=== PATIENT | female | born 1995 | race Caucasian/White ===

== ENCOUNTER 2019-05-02 20:23 | Emergency (ER) | payer OTHER ==
[2019-05-02] MEDS ORDERED: NA CHLORIDE 0.9% 1,000 ML ONE (21:00)
[2019-05-02 21:27] LABS: Absolute Lymphocytes (CBC) 1.4 K/uL (0.7-4.9); Basophils % 0.5 % (0-1.3); Hematocrit 42.3 % (36.0-45.0); Lymphocytes % 22.5 % (15.3-44.8); MPV 8.3 fL (7.6-11.3); RBC Red Blood Cell Count 4.83 M/uL (3.86-4.86)
[2019-05-02 21:39] LABS: Albumin 4.1 g/dL (3.4-5.0); Bilirubin Direct 0.1 mg/dL (0-0.2); Bilirubin Total 0.4 mg/dL (0.2-1.0); Potassium 3.6 mmol/L (3.5-5.1); Protein, Total 7.2 g/dL (6.4-8.2)
[2019-05-02 21:49] LABS: Urine RBC <5 /HPF (NONE SEEN)
[2019-05-02 21:50] LABS: Urine Amorphous Sediment 4+ /HPF (NONE SEEN); Urine Bacteria <20 /HPF (<20); Urine Culture Reflex Order NOT NEEDED
[2019-05-02 21:50] LABS: Urine Blood NEGATIVE (NEG); Urine Glucose NEGATIVE (NEG); Urine Protein NEGATIVE (NEG); Urine pH 8.5 (5.0-7.0)
[2019-05-02] MEDS ORDERED: ONDANSETRON 4 MG (ODT) TAB ONE (22:34)
[2019-05-02] MEDS ORDERED: KETOROLAC 30 MG/ML INJ ONE (22:34)
--- NOTE | 2019-05-02 22:45 | ER ---
Nurse's Notes [facility] Name: Abeba Allen Age: 24 yrs Sex: Female : 1995 Arrival Date: 05/02/2019 Time: 20:28 Bed 16 Private MD: Diagnosis: Volume depletion;Menstrual migraine, intractable, without status migrainosus Presentation: 05/02 20:42 Presenting complaint: Patient states: for the last 5 days she has been feeling bb light-headed and nauseous with a throbbing headache yesterday she started her menstrual cycle and is bleeding heavier than usual and she has a pins and needles feeling in that area. Transition of care: patient was not received from another setting of care. Onset of symptoms was April 27, 2019. Risk Assessment: Do you want to hurt yourself or someone else? Patient reports no desire to harm self or others. Initial Sepsis Screen: Does the patient meet any 2 criteria? No. Patient's initial sepsis screen is negative. Does the patient have a suspected source of infection? No. Patient's initial sepsis screen is negative. Care prior to arrival: None. 20:42 Method Of Arrival: Ambulatory bb 20:42 Acuity: BISHNU 3 bb 20:47 Note pt states she has been out of her medications x 1 month she recently moved here bb and has not been able to find a doctor. 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 - Ebola Screening: : No symptoms or risks identified at this time. - Social history:: Smoking status: Patient/guardian denies using tobacco. Screenin:00 Abuse screen: Denies threats or abuse. Denies injuries from another. Nutritional ca1 screening: No deficits noted. Tuberculosis screening: No symptoms or risk factors identified. Fall Risk IV access (20 points). Assessment: 21:00 General: Appears in no apparent distress. comfortable, Behavior is calm, cooperative, ca1 appropriate for age. Pain: Complains of pain in low back area Pain currently is 5 out of 10 on a pain scale. Quality of pain is described as heavy. Neuro: Level of Consciousness is awake, alert, obeys commands, Oriented to person, place, time, situation, Appropriate for age. Cardiovascular: Heart tones S1 S2 present Capillary refill < 3 seconds Patient's skin is warm and dry. Rhythm is sinus rhythm. Respiratory: Airway is patent Respiratory effort is even, unlabored, Respiratory pattern is regular, symmetrical, Breath sounds are clear bilaterally. GI: Abdomen is flat, non-distended, Bowel sounds present X 4 quads. Abd is soft and non tender X 4 quads. : Reports vaginal bleeding that is bright red, heavy flow since since several days ago. EENT: No deficits noted. No signs and/or symptoms were reported regarding the EENT system. Derm: Skin is intact, is healthy with good turgor, Skin is pink, warm \T\ dry. Musculoskeletal: Circulation, motion, and sensation intact. Capillary refill < 3 seconds, Range of motion: intact in all extremities. 21:40 Reassessment: Patient appears in no apparent distress at this time. Patient and/or cc3 family updated on plan of care and expected duration. Pain level reassessed. Patient is alert, oriented x 3, equal unlabored respirations, skin warm/dry/pink. 22:25 Reassessment: Patient appears in no apparent distress at this time. Patient and/or cc3 family updated on plan of care and expected duration. Pain level reassessed. Patient is alert, oriented x 3, equal unlabored respirations, skin warm/dry/pink. Patient denies pain at this time. Patient states feeling better. Patient states symptoms have improved. 23:10 Reassessment: Patient appears in no apparent distress at this time. Patient and/or cc3 family updated on plan of care and expected duration. Pain level reassessed. Patient is alert, oriented x 3, equal unlabored respirations, skin warm/dry/pink. DELBERT Rodriguez discharged the patient home with prescription given. IV cannula removed and patient left ER vitally stable and ambulatory. No valuables left in the patient's room. Patient denies pain at this time. Patient states feeling better. Patient states symptoms have improved. Vital Signs: 20:45 BP 113 / 96; Pulse 81; Resp 14 S; Temp 99.1(O); Pulse Ox 98% on R/A; Weight 63.5 kg bb (R); Height 5 ft. 1 in. (154.94 cm) (R); Pain 4/10; 21:45 BP 101 / 65; Pulse 78; Resp 15 S; Pulse Ox 100% on R/A; cc3 22:28 BP 108 / 66; Pulse 71; Resp 16 S; Pulse Ox 100% on R/A; cc3 23:00 BP 110 / 64; Pulse 75; Resp 15 S; Pulse Ox 100% on R/A; Pain 0/10; cc3 20:45 Body Mass Index 26.45 (63.50 kg, 154.94 cm) bb ED Course: 20:28 Patient arrived in ED. cf2 20:34 Mary De Jesus, RN is Primary Nurse. ca1 20:36 Jennifer Bryant FNP-C is PHCP. snw 20:36 Andrea Simmons MD is Attending Physician. snw 20:44 Triage completed. bb 20:45 Arm band placed on Patient placed in an exam room, on a stretcher, on pulse oximetry. bb 21:00 Patient has correct armband on for positive identification. Bed in low position. Call ca1 light in reach. Side rails up X 1. Pulse ox on. NIBP on. Warm blanket given. 21:00 No provider procedures requiring assistance completed. Initial lab(s) drawn, by me, ca1 sent to lab. Inserted saline lock: 22 gauge in left antecubital area, using aseptic technique. Blood collected. 21:00 Urine collected: clean catch specimen, cloudy, Amount Voided: 90mL. ca1 21:38 Neetu Gómez is Primary Nurse. cc3 21:46 Urine Dipstick--Ancillary (enter results) Sent. ds4 21:46 Urine --Ancillary (enter results) Sent. ds4 21:47 Urine Microscopic Only Sent. ds4 23:10 IV discontinued, intact, bleeding controlled, No redness/swelling at site. Pressure cc3 dressing applied. Administered Medications: 21:20 Drug: NS 0.9% 1000 ml Route: IV; Rate: 125 ml/hr; Site: left antecubital; ca1 23:00 Follow up: Response: No adverse reaction; IV Status: Order to discontinue infusion; IV cc3 Intake: 250ml ; patient discharged home 22:30 Drug: Zofran 4 mg Route: PO; cc3 23:00 Follow up: Response: No adverse reaction; Nausea is decreased cc3 22:35 Drug: TORadol 30 mg Route: IM; Site: left gluteus; cc3 23:00 Follow up: Response: No adverse reaction; Pain is decreased cc3 Intake: 23:00 IV: 250ml; Total: 250ml. cc3 Outcome: 22:44 Discharge ordered by MD. benz 23:10 Discharged to home ambulatory. cc3 23:10 Condition: stable 23:10 Discharge instructions given to patient, Instructed on discharge instructions, follow up and referral plans. medication usage, Demonstrated understanding of instructions, follow-up care, medications, Prescriptions given X 1. 23:14 Patient left the ED. cc3 Signatures: Jennifer Bryant, HEAD STRENGTH AND CONDITIONING COACH-C HEAD STRENGTH AND CONDITIONING COACH-Csnw Shelby Booth, RN RN bb Fracisco Nogueira ds4 Neetu Gómez cc3 Mary De Jesus RN RN ca1 Noemí Byrd cf2
--- NOTE | 2019-05-02 22:45 | EDPHYS ---
Physician Documentation [facility] Name: Abeba Allen Age: 24 yrs Sex: Female : 1995 Arrival Date: 05/02/2019 Time: 20:28 Bed 16 Private MD: ED Physician Andrea Simmons HPI: 05/02 21:28 This 24 yrs old Female presents to ER via Ambulatory with complaints of snw Nausea, Headache, Dizziness. 21:28 The patient presents to the emergency department with nausea, that is moderate, snw abdominal pain, of the posterior aspect of left lateral abdomen, described as crampy, groin tenderness. Onset: The symptoms/episode began/occurred gradually, 3 day(s) ago, and became persistent. Possible causes: unknown. Associated signs and symptoms: The patient has no apparent associated signs or symptoms. Severity of symptoms: At their worst the symptoms were moderate in the emergency department the symptoms are unchanged. It is unknown whether or not the patient has had similar symptoms in the past. just moved here one month ago and has not had psych meds. 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 - Ebola Screening: : No symptoms or risks identified at this time. - Social history:: Smoking status: Patient/guardian denies using tobacco. ROS: 21:25 Constitutional: Negative for fever, chills, and weight loss, Eyes: Negative for injury, snw pain, redness, and discharge, ENT: Negative for injury, pain, and discharge, Neck: Negative for injury, pain, and swelling, Cardiovascular: Negative for chest pain, palpitations, and edema, Respiratory: Negative for shortness of breath, cough, wheezing, and pleuritic chest pain, Back: Negative for injury and pain, : Negative for injury, bleeding, discharge, and swelling, MS/Extremity: Negative for injury and deformity, Skin: Negative for injury, rash, and discoloration, Neuro: Negative for weakness, numbness, tingling, and seizure, + pounding headache 21:25 Abdomen/GI: Positive for nausea, abdominal cramps, Negative for vomiting, diarrhea, constipation. Exam: 21:25 Constitutional: This is a well developed, well nourished patient who is awake, alert, snw and in no acute distress. Head/Face: Normocephalic, atraumatic. Eyes: Pupils equal round and reactive to light, extra-ocular motions intact. Lids and lashes normal. Conjunctiva and sclera are non-icteric and not injected. Cornea within normal limits. Periorbital areas with no swelling, redness, or edema. ENT: Nares patent. No nasal discharge, no septal abnormalities noted. Tympanic membranes are normal and external auditory canals are clear. Oropharynx with no redness, swelling, or masses, exudates, or evidence of obstruction, uvula midline. Mucous membranes moist. Neck: Trachea midline, no thyromegaly or masses palpated, and no cervical lymphadenopathy. Supple, full range of motion without nuchal rigidity, or vertebral point tenderness. No Meningismus. Chest/axilla: Normal chest wall appearance and motion. Nontender with no deformity. No lesions are appreciated. Cardiovascular: Regular rate and rhythm with a normal S1 and S2. No gallops, murmurs, or rubs. Normal PMI, no JVD. No pulse deficits. Respiratory: Lungs have equal breath sounds bilaterally, clear to auscultation and percussion. No rales, rhonchi or wheezes noted. No increased work of breathing, no retractions or nasal flaring. Abdomen/GI: Soft, non-tender, with normal bowel sounds. No distension or tympany. No guarding or rebound. No evidence of tenderness throughout. Back: No spinal tenderness. No costovertebral tenderness. Full range of motion. Skin: Warm, dry with normal turgor. Normal color with no rashes, no lesions, and no evidence of cellulitis. MS/ Extremity: Pulses equal, no cyanosis. Neurovascular intact. Full, normal range of motion. Neuro: Awake and alert, GCS 15, oriented to person, place, time, and situation. Cranial nerves II-XII grossly intact. Motor strength 5/5 in all extremities. Sensory grossly intact. Cerebellar exam normal. Normal gait. Psych: Awake, alert, with orientation to person, place and time. Behavior, mood, and affect are within normal limits. anxious Vital Signs: 20:45 BP 113 / 96; Pulse 81; Resp 14 S; Temp 99.1(O); Pulse Ox 98% on R/A; Weight 63.5 kg bb (R); Height 5 ft. 1 in. (154.94 cm) (R); Pain 4/10; 21:45 BP 101 / 65; Pulse 78; Resp 15 S; Pulse Ox 100% on R/A; cc3 22:28 BP 108 / 66; Pulse 71; Resp 16 S; Pulse Ox 100% on R/A; cc3 23:00 BP 110 / 64; Pulse 75; Resp 15 S; Pulse Ox 100% on R/A; Pain 0/10; cc3 20:45 Body Mass Index 26.45 (63.50 kg, 154.94 cm) bb MDM: 20:37 Patient medically screened. snw 22:45 Data reviewed: vital signs, nurses notes, lab test result(s). Data interpreted: Pulse snw oximetry: on room air is 100 %. Interpretation: normal. Counseling: I had a detailed discussion with the patient and/or guardian regarding: the historical points, exam findings, and any diagnostic results supporting the discharge/admit diagnosis, lab results, the need for outpatient follow up, to return to the emergency department if symptoms worsen or persist or if there are any questions or concerns that arise at home. Special discussion: Based on the patient's Hx, exam, and Dx evaluation, there is no indication for emergent surgery or inpatient Tx. It is understood by the patient/guardian that if the Sx's persist or worsen they need to return immediately for re-evaluation. Based on the history and exam findings, there is no indication for further emergent testing or inpatient evaluation. I discussed with the patient/guardian the need to see the OB Gyne specialist for further evaluation of the symptoms. I discussed with the patient/guardian the need to see the primary care provider for further evaluation of the symptoms. 05/02 20:31 Order name: Urine Microscopic Only; Complete Time: 21:54 snw 05/02 20:51 Order name: Basic Metabolic Panel; Complete Time: 21:43 snw 05/02 20:51 Order name: CBC with Diff; Complete Time: 21:31 snw 05/02 20:51 Order name: Creatinine for Radiology; Complete Time: 21:43 snw 05/02 20:51 Order name: Hepatic Function; Complete Time: 21:43 snw 05/02 20:51 Order name: Lipase; Complete Time: 21:43 snw 05/02 20:31 Order name: Urine Test (obtain specimen); Complete Time: 21:21 snw 05/02 20:31 Order name: Urine Dipstick-Ancillary (obtain specimen); Complete Time: 21:21 snw 05/02 21:22 Order name: Urine Dipstick--Ancillary (enter results); Complete Time: 21:54 cm6 05/02 21:22 Order name: Urine --Ancillary (enter results); Complete Time: 21:54 cm6 05/02 20:51 Order name: Labs collected and sent; Complete Time: 21:21 snw Administered Medications: 21:20 Drug: NS 0.9% 1000 ml Route: IV; Rate: 125 ml/hr; Site: left antecubital; ca1 23:00 Follow up: Response: No adverse reaction; IV Status: Order to discontinue infusion; IV cc3 Intake: 250ml ; patient discharged home 22:30 Drug: Zofran 4 mg Route: PO; cc3 23:00 Follow up: Response: No adverse reaction; Nausea is decreased cc3 22:35 Drug: TORadol 30 mg Route: IM; Site: left gluteus; cc3 23:00 Follow up: Response: No adverse reaction; Pain is decreased cc3 Disposition: 05/02/19 22:44 Discharged to Home. Impression: Volume depletion, Menstrual migraine, intractable, without status migrainosus. - Condition is Stable. - Discharge Instructions: Dehydration, Adult, Dysmenorrhea, Rehydration, Adult. - Prescriptions for Mobic 7.5 mg Oral Tablet - take 1 tablet by ORAL route once daily take with food; 20 tablet. - Medication Reconciliation Form, Thank You Letter, Antibiotic Education, Prescription Opioid Use form. - Follow up: Private Physician; When: 2 - 3 days; Reason: Recheck today's complaints, Continuance of care, Re-evaluation by your physician. Follow up: Emergency Department; When: As needed; Reason: Worsening of condition. Addendum: 05/07/2019 05:42 Co-signature as Attending Physician, Andrea Simmons MD I agree with the assessment and t w4 plan of care. Signatures: Dispatcher [employer] EDJennifer Mccain, CARDIOLOGY COORDINATOR-C CARDIOLOGY COORDINATOR-Csnw Shelby Booth, RN RN Andrea Orozco MD MD tw4 Neetu Gómez cc3 Mary De Jesus RN RN ca1 Corrections: (The following items were deleted from the chart) 05/02 23:14 20:50 Hu ordered. snw cc3 23:14 22:44 05/02/2019 22:44 Discharged to Home. Impression: Volume depletion; Menstrual cc3 migraine, intractable, without status migrainosus. Condition is Stable. Forms are Medication Reconciliation Form, Thank You Letter, Antibiotic Education, Prescription Opioid Use. Follow up: Private Physician; When: 2 - 3 days; Reason: Recheck today's complaints, Continuance of care, Re-evaluation by your physician. Follow up: Emergency Department; When: As needed; Reason: Worsening of condition. tuyet
[2019-05-02 23:36] VITALS: TEMP 99.1
[2019-05-02 23:37] VITALS: O2SAT 100
[2019-05-02 23:38] VITALS: BP 108/66
== END 2019-05-02 23:14 | disposition home or self-care (01) ==
LOC: ER 20:23
DX: G43.839 Menstrual migraine, intractable, without status migrainosus (principal); E86.9 Volume depletion, unspecified; Z88.0 Allergy status to penicillin
CPT/HCPCS: 96361; 85025; 80048; 36415; 81025; 80076; 83690; 96360; 96372; 99284; J7030; 81003; 81015

== ENCOUNTER 2019-09-04 19:45 | Emergency (ER) | payer OTHER ==
[2019-09-04 20:52] LABS: Urine Blood NEGATIVE (NEG); Urine Glucose NEGATIVE (NEG); Urine Protein NEGATIVE (NEG); Urine Specific Gravity 1.025 (1.005-1.030); Urine pH 8.5 (5.0-7.0)
[2019-09-04 21:10] LABS: Urine Bacteria <20 /HPF (<20); Urine Culture Reflex Order NOT NEEDED; Urine RBC NONE SEEN /HPF (NONE SEEN)
[2019-09-04 21:12] LABS: Absolute Lymphocytes (CBC) 1.4 K/uL (0.7-4.9); Basophils % 0.8 % (0-1.3); Hematocrit 39.9 % (36.0-45.0); Lymphocytes % 26.5 % (15.3-44.8); MPV 8.8 fL (7.6-11.3); RBC Red Blood Cell Count 4.57 M/uL (3.86-4.86)
[2019-09-04 21:28] LABS: BUN Blood Urea Nitrogen 10 mg/dL (7-18); Bicarbonate 24 mmol/L (21-32); Glucose Level 97 mg/dL (74-106); HCG, Quantitative 311 mIU/mL (1-3); Potassium 3.8 mmol/L (3.5-5.1); Sodium Level 140 mmol/L (136-145)
[2019-09-04 22:08] LABS: Urine Specific Gravity 1.025 (1.005-1.030)
--- NOTE | 2019-09-04 22:38 | ER ---
Nurse's Notes [facility] Name: Abeba Allen Age: 24 yrs Sex: Female : 1995 Arrival Date: 09/04/2019 Time: 19:47 Bed 19 Private MD: Diagnosis: state Presentation: 09/03 20:00 Chief complaint: Patient states: "I have irregular period, haven't had a period in 3 ca1 months, history of PCOS. Last night, I took a UPT and it came out positive". No complains at this time. "Wants to check how long it has been there and if really ". Coronavirus screen: The patient has NOT traveled to [place] in the past 14 days. The patient has NOT had contact with known and/or suspected case of Coronavirus. Ebola Screen: Patient negative for fever greater than or equal to 101.5 degrees Fahrenheit, and additional compatible Ebola Virus Disease symptoms Patient denies exposure to infectious person. Patient denies travel to an Ebola-affected area in the 21 days before illness onset. No symptoms or risks identified at this time. Initial Sepsis Screen: Does the patient meet any 2 criteria? No. Patient's initial sepsis screen is negative. Does the patient have a suspected source of infection? No. Patient's initial sepsis screen is negative. Risk Assessment: Do you want to hurt yourself or someone else? Patient reports no desire to harm self or others. Onset of symptoms was September 04, 2019. 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 - Social history:: Smoking status: Reported history of juuling and/or vaping. Screenin:15 Abuse screen: Denies threats or abuse. Denies injuries from another. Nutritional wh screening: No deficits noted. Tuberculosis screening: No symptoms or risk factors identified. Fall Risk None identified. Assessment: 20:15 General: Appears in no apparent distress. Behavior is calm, cooperative, appropriate wh for age. Pain: Denies pain. Neuro: Level of Consciousness is awake, alert, obeys commands, Oriented to person, place, time, situation, Appropriate for age. Cardiovascular: Heart tones S1 S2. Respiratory: Airway is patent Respiratory effort is even, unlabored, Respiratory pattern is regular, symmetrical, Breath sounds are clear bilaterally. GI: Abdomen is flat, non-distended, Abd is soft and non tender X 4 quads. : No signs and/or symptoms were reported regarding the genitourinary system. EENT: No signs and/or symptoms were reported regarding the EENT system. Derm: Skin is intact, is healthy with good turgor, Skin is pink, warm \\T\\ dry. normal. Musculoskeletal: Circulation, motion, and sensation intact. 21:41 Reassessment: Patient appears in no apparent distress at this time. No changes from previously documented assessment. Patient and/or family updated on plan of care and expected duration. Pain level reassessed. Patient is alert, oriented x 3, equal unlabored respirations, skin warm/dry/pink. 22:54 Reassessment: Patient appears in no apparent distress at this time. No changes from previously documented assessment. Patient and/or family updated on plan of care and expected duration. Pain level reassessed. Patient is alert, oriented x 3, equal unlabored respirations, skin warm/dry/pink. Vital Signs: 20:00 BP 151 / 97; Pulse 75; Resp 16 S; Temp 98(TE); Pulse Ox 100% on R/A; Weight 65.77 kg ca1 (R); Height 5 ft. 1 in. (154.94 cm); Pain 0/10; 21:43 BP 103 / 68; Pulse 81; Resp 18; Pulse Ox 99% on R/A; wh 22:55 BP 110 / 80; Pulse 74; Resp 18; Pulse Ox 98% on R/A; wh 20:00 Body Mass Index 27.40 (65.77 kg, 154.94 cm) ca1 ED Course: 19:47 Patient arrived in ED. jg7 20:04 Triage completed. ca1 20:04 Arm band placed on right wrist. ca1 20:09 Nelson Lamar PA is PHCP. cp 20:09 Urbano Up MD is Attending Physician. cp 20:15 Patient has correct armband on for positive identification. Bed in low position. Call light in reach. Side rails up X 1. Pulse ox on. NIBP on. 20:18 Tejinder Harley is Primary Nurse. 20:30 Inserted saline lock: 22 gauge in left antecubital area, using aseptic technique. Blood wh collected. by Selam Hector RN. 22:36 Prashant Smith MD is Referral Physician. cp 22:36 Referral Physician role handed off by Prashant Smith MD cp 22:36 Prashant Smith MD is Referral Physician. cp 22:55 No provider procedures requiring assistance completed. IV discontinued, intact, wh bleeding controlled, No redness/swelling at site. Administered Medications: No medications were administered Outcome: 22:37 Discharge ordered by . cp 22:56 Discharged to home ambulatory. 22:56 Condition: stable 22:56 Discharge instructions given to patient, Instructed on discharge instructions, follow up and referral plans. medication usage, POC Demonstrated understanding of instructions, follow-up care, medications, POC Prescriptions given X 1. 22:57 Patient left the ED. Signatures: Nelson Lamar PA PA cp Habalo, Winsy Mary De Jesus RN RN ca1 Gutierrez, Jessica [id number]
--- NOTE | 2019-09-04 22:38 | EDPHYS ---
Physician Documentation [facility] Name: Abeba Allen Age: 24 yrs Sex: Female : 1995 Arrival Date: 09/04/2019 Time: 19:47 Bed 19 Private MD: ED Physician Urbano Up HPI: 09/03 20:34 This 24 yrs old Female presents to ER via Ambulatory with complaints of cp RELATED ISSUE. 20:34 The patient presents to the emergency department with positive home test. cp 20:34 course: care: none, Leakage of Fluid: none appreciated, Ultrasound: cp the patient has not had an ultrasound. Previous pregnancies: the patient has never been . Associated signs and symptoms: Pertinent negatives: abdominal pain, dysuria, ruptured membranes, vaginal bleeding, vomiting. Patient reports last menstrual cycle was sometime early June 2019, but she has history of irregular menses. Positive home , wants to to know how far along. 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 - Social history:: Smoking status: Reported history of juuling and/or vaping. ROS: 20:40 Constitutional: Negative for body aches, chills, fever, poor PO intake. cp 20:40 Eyes: Negative for injury, pain, redness, and discharge. cp 20:40 Cardiovascular: Negative for chest pain, palpitations. 20:40 Respiratory: Negative for cough, shortness of breath, wheezing. 20:40 Abdomen/GI: Negative for abdominal pain, nausea, vomiting, and diarrhea, anorexia. 20:40 : Negative for urinary symptoms, pelvic pain, vaginal bleeding, vaginal discharge. 20:40 All other systems are negative. Exam: 20:45 Constitutional: The patient appears in no acute distress, alert, awake, comfortable, cp non-toxic, well developed, well nourished. 20:45 Head/Face: Normocephalic, atraumatic. cp 20:45 Eyes: Periorbital structures: appear normal, Conjunctiva: normal, no exudate, no injection, Sclera: no appreciated abnormality, Lids and lashes: appear normal, bilaterally. 20:45 ENT: External ear(s): are unremarkable, Nose: is normal, Mouth: is normal, Posterior pharynx: is normal, airway is patent, no erythema, no exudate. 20:45 Chest/axilla: Inspection: normal, Palpation: is normal, no crepitus, no tenderness. 20:45 Cardiovascular: Rate: normal, Rhythm: regular. 20:45 Respiratory: the patient does not display signs of respiratory distress, Respirations: normal, no use of accessory muscles, labored breathing, is not present, Breath sounds: are clear throughout, no decreased breath sounds, no wheezing. 20:45 Abdomen/GI: Inspection: abdomen appears normal, Bowel sounds: active, all quadrants, Palpation: abdomen is soft and non-tender, in all quadrants. 20:45 Back: pain, is absent, ROM is normal. 20:45 Skin: no rash present. Vital Signs: 20:00 BP 151 / 97; Pulse 75; Resp 16 S; Temp 98(TE); Pulse Ox 100% on R/A; Weight 65.77 kg ca1 (R); Height 5 ft. 1 in. (154.94 cm); Pain 0/10; 21:43 BP 103 / 68; Pulse 81; Resp 18; Pulse Ox 99% on R/A; wh 22:55 BP 110 / 80; Pulse 74; Resp 18; Pulse Ox 98% on R/A; wh 20:00 Body Mass Index 27.40 (65.77 kg, 154.94 cm) ca1 MDM: 20:09 Patient medically screened. cp 22:36 Data reviewed: vital signs, nurses notes, lab test result(s), and as a result, I will cp discharge patient. 22:36 Differential diagnosis: STD, ectopic . Counseling: I had a detailed discussion cp with the patient and/or guardian regarding: the historical points, exam findings, and any diagnostic results supporting the discharge/admit diagnosis, lab results, the need for outpatient follow up, an OB/Gyne specialist, instructed to return to ED if abdominal pain, vaginal bleeding occurs. 09/03 20:37 Order name: Quantitative Hcg; Complete Time: 21:56 cp 09/03 21:56 Interpretation: Reviewed. cp 09/03 20:37 Order name: Abo/rh Typing; Complete Time: 22:30 cp 09/03 22:30 Interpretation: Reviewed. cp 09/03 20:37 Order name: Basic Metabolic Panel; Complete Time: 21:56 cp 09/03 21:57 Interpretation: Normal except: CL 110. cp 09/03 20:37 Order name: CBC with Diff; Complete Time: 21:56 cp 09/03 20:37 Order name: Urine Microscopic Only; Complete Time: 21:56 cp 09/03 21:57 Interpretation: Reviewed. cp 09/03 20:38 Order name: Urine Dipstick--Ancillary (enter results); Complete Time: 21:56 mw2 09/03 20:09 Order name: Urine Dipstick-Ancillary (obtain specimen); Complete Time: 20:28 cp 09/03 20:09 Order name: Urine Test (obtain specimen); Complete Time: 20:28 cp 09/03 20:37 Order name: IV Saline Lock; Complete Time: 21:03 cp 09/03 20:37 Order name: Labs collected and sent; Complete Time: 21:03 cp 09/03 20:37 Order name: NPO; Complete Time: 21:03 cp 09/03 21:12 Order name: Urine --Ancillary (enter results); Complete Time: 22:30 mw2 Administered Medications: No medications were administered Disposition: 23:05 Co-signature as Attending Physician, Urbano Up MD. rn Disposition: 09/04/19 22:37 Discharged to Home. Impression: state. - Condition is Stable. - Discharge Instructions: First Trimester of . - Prescriptions for Vitamin 27- 0.8 mg Oral Tablet - take 1 tablet by ORAL route once daily; 60 tablet. - Medication Reconciliation Form, Thank You Letter, Antibiotic Education, Prescription Opioid Use form. - Follow up: Prashant Smith MD; When: 1 week; Reason: Recheck today's complaints. Follow up: Prashant Smith MD; When: 48 Hours; Reason: Repeat Beta-HCG (48 Hours). - Problem is new. - Symptoms have improved. Signatures: Dispatcher [employer] EDMS Urbano Up MD MD rn Nelson Lamar PA PA cp Tejinder Harley Neal, Mary RN RN ca1 Corrections: (The following items were deleted from the chart) 21:12 20:39 URINE --ANCILLARY+UC.LAB.BRZ ordered. EDMS EDMS 21:12 21:10 URINE --ANCILLARY+UC.LAB.BRZ reviewed. cp EDMS 21:12 21:10 Reviewed. cp EDMS 22:57 22:37 09/04/2019 22:37 Discharged to Home. Impression: state. Condition is Stable. Forms are Medication Reconciliation Form, Thank You Letter, Antibiotic Education, Prescription Opioid Use. Follow up: Prashant Smith; When: 48 Hours; Reason: Repeat Beta-HCG (48 Hours). Problem is new. Symptoms have improved. cp
[2019-09-05 01:39] VITALS: TEMP 98
[2019-09-05 01:42] VITALS: BP 110/80; O2SAT 98
== END 2019-09-04 22:57 | disposition home or self-care (01) ==
LOC: ER 19:45
DX: Z33.1 Pregnant state, incidental (principal); Z88.0 Allergy status to penicillin
CPT/HCPCS: 36415; 80048; 81003; 81015; 81025; 84702; 85025; 86900; 86901; 99284

== ENCOUNTER 2019-09-14 20:00 | Emergency (ER) | payer OTHER ==
[2019-09-14 20:49] LABS: Urine Blood TRACE (NEG); Urine Glucose NEGATIVE (NEG); Urine Protein 2+ (NEG); Urine Specific Gravity >1.030 (1.005-1.030); Urine pH 6.5 (5.0-7.0)
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
[2019-09-14 22:08] VITALS: BP 129/89; TEMP 99.4; O2SAT 100
--- NOTE | 2019-09-15 08:45 | RAD REPORT ---
EXAM DESCRIPTION: US - Transvaginal OB - 09/14/2019 9:42 pm CLINICAL HISTORY: ABD PAIN, positive test Preliminary findings provided at the time of the study. COMPARISON: No comparisons TECHNIQUE: Endovaginal sonography performed. FINDINGS: A normal shaped gestational sac is present in the fundal portion of the uterus with yolk s ac identified. No pole is seen. Average sac diameter corresponds to a 5 week 6 day age. No intr auterine mass or hematoma otherwise noted. Both ovaries are identified and are normal in appearance. No suspicion for ectopic . No blood or fluid seen in the cul de sac. IMPRESSION: Gestational sac with yolk sac measuring 5 week 6 day size. No pole. No adnexal abnormality. Follow-up sonography can be performed if serial HCG values indicate ongoing .
== END 2019-09-14 22:00 | disposition home or self-care (01) ==
LOC: ER 20:00
DX: O26.891 Other specified pregnancy related conditions, first trimester (principal); Z3A.01 Less than 8 weeks gestation of pregnancy; Y04.8XXA Assault by other bodily force, initial encounter; Z88.0 Allergy status to penicillin
CPT/HCPCS: 76817; 81003; 81025; 99283

== ENCOUNTER 2019-10-14 08:54 | Emergency (ER) | payer OTHER ==
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
--- NOTE | 2019-10-14 10:05 | RAD REPORT ---
EXAM DESCRIPTION: US - Transvaginal OB - 10/14/2019 9:47 am CLINICAL HISTORY: with pelvic pain COMPARISON: September 2019 FINDINGS: The uterus measures 11 x 7 x 9 centimeters. A normal appearing gestational sac is present within the endometrium. Within this is a yolk sac and pole with a crown-rump length 2.9 centim eters. Cardiac activity 162 beats per minute Small subchorionic bleed. Left ovary appear normal. . An adnexal mass is not noted. The right ovary not seen secondary to overl liban bowel gas No significant free fluid is seen. IMPRESSION: Single live intrauterine with an estimated gestational age 9 weeks 2 days CHELSI 05/16/2020 Small subchorionic bleed
[2019-10-14 10:07] VITALS: BP 127/81; TEMP 98.7; O2SAT 100
[2019-10-14 13:45] LABS: Urine Blood NEGATIVE (NEG); Urine Glucose NEGATIVE (NEG); Urine Protein NEGATIVE (NEG); Urine Specific Gravity 1.025 (1.005-1.030); Urine pH 6.5 (5.0-7.0)
== END 2019-10-14 10:00 | disposition home or self-care (01) ==
LOC: ER 08:54
DX: O99.89 Other specified diseases and conditions complicating pregnancy, childbirth and the puerperium (principal); R10.84 Generalized abdominal pain; Z3A.09 9 weeks gestation of pregnancy; Y04.8XXA Assault by other bodily force, initial encounter; W10.8XXA Fall (on) (from) other stairs and steps, initial encounter
CPT/HCPCS: 76817; 81003; 81025; 99283